=== PATIENT | male | born 1930 | race Caucasian/White ===

== ENCOUNTER 2017-02-07 22:01 | Inpatient (IN) | payer MEDICARE, BC ==
--- NOTE | 2017-02-07 22:12 | EDM.PDOC ---
ED HPI GENERAL MEDICAL PROBLEM - General Chief Complaint: Fever Stated Complaint: "I don't feel well" Time Seen by Provider: 02/07/17 22:03 Source of Information: Reports: Patient, Family History Limitations: Reports: No Limitations - History of Present Illness INITIAL COMMENTS - FREE TEXT/NARRATIVE: Patient is an 86 year old male who presents to the clinic with complaints of shortness of breath and weakness. Family reports since early this week he has been feeling ill and it has progressively gotten worse. At presentation to ER patient's biggest complaint is shortness of breath and weakness. They report he was coughing so bad he could not catch his breath tonight. Family reports he is much weaker than normal. Family reports he has had a fever intermittently over the weekend. He also reports he has had a productive cough. He has been nauseated and did have one emesis on the drive here. Reports urinary frequency and urgency. Also reports he feels lightheaded tonight. Denies dysuria, chest pain, diarrhea. He has been taking OTC cold medicine at home without relief. Family reports his blood sugars have been elevated because of this. Reports he has been eating and drinking ok. Onset: Gradual Onset Date: 02/03/17 Duration: Getting Worse Location: Reports: Chest Associated Symptoms: Reports: Cough, cough w sputum, Fever/Chills, Nausea/ Vomiting, Shortness of Breath, Weakness, Other (lightheadedness). Denies: Confusion, Chest Pain, Diaphoresis, Headaches, Loss of Appetite, Malaise, Rash, Seizure, Syncope Treatments TERMITE EXTERMINATOR: Reports: NSAIDS (took 2 Aleve prior to coming for fever), Other Medication(s) (OTC cold medications) Generalized Pain Score (Numeric/FACES): 1 - Related Data Allergies Allergy/AdvReac Type Severity Reaction Status Date / Time No Known Allergies Allergy Verified 02/07/17 23:30 Home Meds: Home Meds Aspirin [Halfprin] 81 mg PO DAILY 08/22/15 [History] Cinnamon Bark [Cinnamon] 500 mg PO DAILY 08/22/15 [History] Cyanocobalamin (Vitamin B-12) [Vitamin B-12] 500 mg PO DAILY 08/22/15 [History] Flaxseed Oil [Flax Oil] 1,000 mg PO BID 08/22/15 [History] Gabapentin [Neurontin] 300 mg PO BEDTIME 08/22/15 [History] Glucosamine/D3/Boswellia Mona [Osteo Bi-Flex Caplet] 1 tab PO BID 08/22/15 [ History] Insulin Glargine,Hum.Rec.Anlog [Lantus Solostar] 10 units SQ BEDTIME 08/22/15 [ History] Insuln Asp Prot/Insulin Aspart [NovoLOG Mix 70-30] 25 unit SQ ACDINNER 08/22/15 [History] Insuln Asp Prot/Insulin Aspart [NovoLOG Mix 70-30] 35 units SQ WITHBREAKFAST [History] Lisinopril/Hydrochlorothiazide [Lisinopril-Hctz 10-12.5 mg Tab] 1 each PO DAILY 08/22/15 [History] Magnesium 250 mg PO DAILY 08/22/15 [History] Potassium 595 mg PO DAILY 08/22/15 [History] Sennosides/Docusate Sodium [Stool Softener] 1 tab PO BID 08/22/15 [History] Simvastatin [Zocor] 20 mg PO DAILY 08/22/15 [History] Vit D3/Folic Acid/B2/B6/B12 [Folgard Tablet] 2,000 unit PO DAILY 08/22/15 [ History] Vitamin E 400 mg PO DAILY 08/22/15 [History] Zinc 50 mg PO ACBREAKFAST 08/22/15 [History] metFORMIN HCl [Metformin HCl] 500 mg PO BIDMEALS 08/22/15 [History] Past Medical History HEENT History: Reports: Cataract, Impaired Vision Cardiovascular History: Reports: High Cholesterol, Hypertension Musculoskeletal History: Reports: Back Pain, Chronic Endocrine/Metabolic History: Reports: Diabetes, Type II - Past Surgical History GI Surgical History: Reports: Appendectomy, Hernia Repair/Other Social & Family History - Tobacco Use Smoking Status *Q: Never Smoker - Recreational Drug Use Recreational Drug Use: No ED ROS GENERAL - Review of Systems Review Of Systems: See Below Constitutional: Reports: Fever, Chills, Weakness, Fatigue. Denies: Diaphoresis , Decreased Appetite HEENT: Reports: No Symptoms Respiratory: Reports: Shortness of Breath, Pleuritic Chest Pain, Cough, Sputum. Denies: Hemoptysis Cardiovascular: Reports: Dyspnea on Exertion, Lightheadedness. Denies: Chest Pain, Blood Pressure Problem, Edema, Syncope Endocrine: Reports: Fatigue GI/Abdominal: Reports: Nausea, Vomiting. Denies: Abdominal Pain, Black Stool, Bloody Stool, Constipation, Diarrhea, Decreased Appetite, Distension, Hematochezia, Melena : Reports: Frequency, Urgency. Denies: Dysuria Musculoskeletal: Reports: No Symptoms Skin: Reports: No Symptoms Neurological: Reports: Dizziness, Difficulty Walking (due to weakness), Weakness. Denies: Headache, Numbness, Syncope, Tingling Psychiatric: Reports: No Symptoms Hematologic/Lymphatic: Reports: No Symptoms Immunologic: Reports: No Symptoms ED EXAM, GENERAL - Physical Exam Exam: See Below Exam Limited By: No Limitations General Appearance: Alert, WD/WN, Moderate Distress Eye Exam: Bilateral Eye: EOMI, Normal Fundi, Normal Inspection, PERRL Head: Atraumatic, Normocephalic Respiratory/Chest: No Respiratory Distress, No Accessory Muscle Use, Decreased Breath Sounds, Crackles, Wheezing. No: Stridor, Pleural Rub, Accessory Muscle Use, Retractions Cardiovascular: Regular Rate, Rhythm, No Edema, Bradycardia, Systolic Murmur GI/Abdominal: Normal Bowel Sounds, Soft, Non-Tender, No Organomegaly, No Distention, No Abnormal Bruit, No Mass (Male) Exam: Deferred Rectal (Males) Exam: Deferred Back Exam: Normal Inspection, Full Range of Motion, NT Extremities: Normal Inspection, Normal Range of Motion, Non-Tender, Normal Capillary Refill, No Pedal Edema Neurological: Alert, Oriented, CN II-XII Intact, Normal Cognition, Normal Gait, Normal Reflexes, No Motor/Sensory Deficits Psychiatric: Normal Affect, Normal Mood Skin Exam: Warm, Dry, Intact, No Rash, Pallor EKG INTERPRETATION EKG Date: 02/07/17 Time: 22:21 Rhythm: Other (sinus bradycardia) Rate (Beats/Min): 59 [place]: Normal P-Wave: Present QRS: RBBB ST-T: Normal QT: Normal Comparison: NA - No Prior EKG Course - Vital Signs Last Recorded V/S: Last Vital Signs Temp 97.7 F 02/08/17 12:00 Pulse 62 02/08/17 12:00 Resp 20 02/08/17 12:00 BP 121/43 L 02/08/17 12:00 Pulse Ox 95 02/08/17 12:00 - Orders/Labs/Meds Orders: Active Orders 24 hr Category Date Time Status CTA Chest W WO Contrast [Ang Chest] [CT] Stat Exams 02/07/17 22:30 Taken Chest 2V [CR] Stat Exams 02/07/17 22:04 Taken CULTURE BLOOD [BC] Stat Lab 02/07/17 23:05 Received CULTURE BLOOD [BC] Stat Lab 02/07/17 23:05 Received Medication Orders Acetaminophen (Tylenol) 650 mg PO Q4H PRN PRN Reason: Pain (Mild 1-3)/fever Last Admin: 02/08/17 01:30 Dose: 650 mg Albuterol/Ipratropium (Duoneb 3.0-0.5 Mg/3 Ml) 3 ml NEB QIDRT [facility] Last Admin: 02/08/17 11:46 Dose: 3 ml Admin: 02/08/17 08:22 Dose: 3 ml Admin: 02/08/17 02:32 Dose: 3 ml Aspirin (Halfprin) 81 mg PO DAILY [facility] Last Admin: 02/08/17 10:46 Dose: 81 mg Cyanocobalamin (Vitamin B12) 500 mcg PO DAILY [facility] Last Admin: 02/08/17 10:45 Dose: 500 mcg Enoxaparin Sodium (Lovenox) 40 mg SUBCUT Q24H [facility] Gabapentin (Neurontin) 300 mg PO BEDTIME [facility] Hydrochlorothiazide (Hydrochlorothiazide) 12.5 mg PO DAILY [facility] Last Admin: 02/08/17 10:46 Dose: 12.5 mg Sodium Chloride (Sodium Chloride 0.45%) 1,000 mls @ 75 mls/hr IV ASDIRECTED [facility] Last Admin: 02/08/17 01:27 Dose: 75 mls/hr Levofloxacin/Dextrose (Levaquin In D5w 250 Mg/50 Ml) 250 mls @ 166.667 mls/hr IV Q24H [facility] Insulin Aspart (Novolog) 0 unit SUBCUT WITHMEALSANDBED [facility] PRN Reason: Protocol Last Admin: 02/08/17 11:47 Dose: 10 units Admin: 02/08/17 08:39 Dose: 8 units Insulin Aspart (Novolog) 5 unit SUBCUT TIDMEALS [facility] Last Admin: 02/08/17 11:47 Dose: 5 units Insulin Detemir (Levemir) 15 unit SUBCUT BID [facility] Last Admin: 02/08/17 10:53 Dose: 15 units Lisinopril (Prinivil) 10 mg PO DAILY [facility] Last Admin: 02/08/17 10:46 Dose: 10 mg Magnesium Oxide (Magnesium Oxide) 250 mg PO DAILY [facility] Last Admin: 02/08/17 10:45 Dose: 250 mg Metformin HCl (Glucophage) 500 mg PO BIDMEALS [facility] Ondansetron HCl (Zofran Odt) 4 mg PO Q4H PRN PRN Reason: nausea, able to take PO Ondansetron HCl (Zofran) 4 mg IV Q4H PRN PRN Reason: Nausea/Vomiting Potassium (Potassium Gluconate) 2 meq PO DAILY [facility] Last Admin: 02/08/17 10:45 Dose: 2 meq Senna/Docusate Sodium (Senna Plus) 1 tab PO BID [facility] Last Admin: 02/08/17 10:45 Dose: 1 tab Simvastatin (Zocor) 20 mg PO BEDTIME [facility] Sodium Chloride (Saline Flush) 10 ml FLUSH ASDIRECTED PRN PRN Reason: Keep Vein Open Vitamin E (Vitamin E) 400 units PO DAILY [facility] Last Admin: 02/08/17 10:45 Dose: 400 units Zinc Sulfate (Zincate) 220 mg PO ACBREAKFAST [facility] Last Admin: 02/08/17 10:46 Dose: 220 mg Labs: Laboratory Tests 02/07/17 02/07/17 02/07/17 Range/Units 22:04 22:04 22:04 WBC 11.4 H (5.0-10.0) 10^3/uL RBC 4.44 L (4.50-6.00) 10^6/uL Hgb 14.1 (14.0-18.0) g/dL Hct 41.6 (40.0-54.0) % MCV 93.7 (82.0-94.0) fL MCH 31.8 (27.0-32.0) pg MCHC 33.9 (33.0-38.0) g/dL RDW Coeff of Charline 11.9 (11.0-15.0) % Plt Count 182 (150-400) 10^3/uL Neut % (Auto) 85.8 H (35-85) % Lymph % (Auto) 8.4 L (10-55) % [place] % (Auto) 5.3 (0-16) % Eos % (Auto) 0.4 (0-5) % Baso % (Auto) 0.1 (0-3) % Neut # (Auto) 9.78 H (1.80-7.00) 10^3/uL Lymph # (Auto) 0.96 L (1.00-4.80) 10^3/uL [place] # (Auto) 0.60 (0.00-0.80) 10^3/uL Eos # (Auto) 0.05 (0.00-0.45) 10^3/uL Baso # (Auto) 0.01 10^3/uL PT 10.4 (9.7-12.3) SEC INR 0.96 (0.92-1.18) D-Dimer, Quantitative 0.90 H (0.00-0.50) Sodium 137 (136-145) mEq/L Potassium 3.9 (3.5-5.0) mEq/L Chloride 96 L (98-106) mEq/L Carbon Dioxide 32 (21-32) mmol/L BUN 32 H (7-18) mg/dL Creatinine 1.3 (0.7-1.3) mg/dL Est Cr Clr Drug Dosing TNP Estimated GFR (MDRD) 52 L (>=60) mL/min Glucose 265 H D (75-99) mg/dL Lactic Acid (0.4-2.0) mmol/L Calcium 9.0 (8.4-10.1) mg/dL Total Bilirubin 0.6 (0.0-1.0) mg/dL AST 24 (15-37) U/L ALT 28 (12-78) U/L Alkaline Phosphatase 57 (46-116) U/L Creatine Kinase 106 (35-232) U/L Troponin I 0.056 (0.00-0.06) ng/mL C-Reactive Protein < 0.2 L (0.2-0.8) mg/dL Total Protein 7.1 (6.4-8.2) g/dL Albumin 3.6 (3.4-5.0) g/dL Urine Color (YELLOW) Urine Appearance (CLEAR) Urine pH (4.5-8.0) Ur Specific [place] (1.003-1.020) Urine Protein (NEGATIVE) mg/dL Urine Glucose (UA) (NEGATIVE) mg/dL Urine Ketones (NEGATIVE) mg/dL Urine Occult Blood (NEGATIVE) Urine Nitrite (NEGATIVE) Urine Bilirubin (NEGATIVE) Urine Urobilinogen (0.2-1.0) EU/dL Ur Leukocyte Esterase (NEGATIVE) Urine RBC (0-5) /HPF Urine WBC (0-5) /HPF 02/07/17 02/07/17 Range/Units 22:31 22:34 WBC (5.0-10.0) 10^3/uL RBC (4.50-6.00) 10^6/uL Hgb (14.0-18.0) g/dL Hct (40.0-54.0) % MCV (82.0-94.0) fL MCH (27.0-32.0) pg MCHC (33.0-38.0) g/dL RDW Coeff of Charline (11.0-15.0) % Plt Count (150-400) 10^3/uL Neut % (Auto) (35-85) % Lymph % (Auto) (10-55) % [place] % (Auto) (0-16) % Eos % (Auto) (0-5) % Baso % (Auto) (0-3) % Neut # (Auto) (1.80-7.00) 10^3/uL Lymph # (Auto) (1.00-4.80) 10^3/uL [place] # (Auto) (0.00-0.80) 10^3/uL Eos # (Auto) (0.00-0.45) 10^3/uL Baso # (Auto) 10^3/uL PT (9.7-12.3) SEC INR (0.92-1.18) D-Dimer, Quantitative (0.00-0.50) Sodium (136-145) mEq/L Potassium (3.5-5.0) mEq/L Chloride (98-106) mEq/L Carbon Dioxide (21-32) mmol/L BUN (7-18) mg/dL Creatinine (0.7-1.3) mg/dL Est Cr Clr Drug Dosing Estimated GFR (MDRD) (>=60) mL/min Glucose (75-99) mg/dL Lactic Acid 1.8 (0.4-2.0) mmol/L Calcium (8.4-10.1) mg/dL Total Bilirubin (0.0-1.0) mg/dL AST (15-37) U/L ALT (12-78) U/L Alkaline Phosphatase (46-116) U/L Creatine Kinase (35-232) U/L Troponin I (0.00-0.06) ng/mL C-Reactive Protein (0.2-0.8) mg/dL Total Protein (6.4-8.2) g/dL Albumin (3.4-5.0) g/dL Urine Color Yellow (YELLOW) Urine Appearance Clear (CLEAR) Urine pH 6.5 (4.5-8.0) Ur Specific [place] 1.015 (1.003-1.020) Urine Protein Negative (NEGATIVE) mg/dL Urine Glucose (UA) Negative (NEGATIVE) mg/dL Urine Ketones Negative (NEGATIVE) mg/dL Urine Occult Blood Negative (NEGATIVE) Urine Nitrite Negative (NEGATIVE) Urine Bilirubin Negative (NEGATIVE) Urine Urobilinogen 1.0 (0.2-1.0) EU/dL Ur Leukocyte Esterase Negative (NEGATIVE) Urine RBC Not seen (0-5) /HPF Urine WBC Not seen (0-5) /HPF Meds: Medications Generic Name Dose Route Start Last Admin Trade Name Freq PRN Reason Stop Dose Admin Acetaminophen 650 mg 02/08/17 00:55 02/08/17 01:30 Tylenol PO 650 mg Q4H PRN Administration Pain (Mild 1-3)/fever Albuterol/Ipratropium 3 ml 02/08/17 08:00 02/08/17 11:46 Duoneb 3.0-0.5 Mg/3 Ml NEB 3 ml QIDRT [facility] Administration Aspirin 81 mg 02/08/17 09:30 02/08/17 10:46 Halfprin PO 81 mg DAILY [facility] Administration Cyanocobalamin 500 mcg 02/08/17 09:30 02/08/17 10:45 Vitamin B12 PO 500 mcg DAILY [facility] Administration Enoxaparin Sodium 40 mg 02/09/17 08:00 Lovenox SUBCUT Q24H [facility] Gabapentin 300 mg 02/08/17 20:00 Neurontin PO BEDTIME [facility] Hydrochlorothiazide 12.5 mg 02/08/17 09:30 02/08/17 10:46 Hydrochlorothiazide PO 12.5 mg DAILY [facility] Administration Sodium Chloride 1,000 mls @ 75 mls/hr 02/08/17 00:55 02/08/17 01:27 Sodium Chloride 0.45% IV 75 mls/hr ASDIRECTED [facility] Administration Levofloxacin/Dextrose 250 mls @ 166.667 mls/hr 02/09/17 08:00 Levaquin In D5w 250 Mg/50 Ml IV Q24H [facility] Insulin Aspart 0 unit 02/08/17 08:00 02/08/17 11:47 Novolog SUBCUT 10 units WITHMEALSANDBED [facility] Administration Protocol Insulin Aspart 5 unit 02/08/17 12:00 02/08/17 11:47 Novolog SUBCUT 5 units TIDMEALS [facility] Administration Insulin Detemir 15 unit 02/08/17 10:00 02/08/17 10:53 Levemir SUBCUT 15 units BID [facility] Administration Lisinopril 10 mg 02/08/17 09:45 02/08/17 10:46 Prinivil PO 10 mg DAILY [facility] Administration Magnesium Oxide 250 mg 02/08/17 09:30 02/08/17 10:45 Magnesium Oxide PO 250 mg DAILY [facility] Administration Metformin HCl 500 mg 02/09/17 08:00 Glucophage PO BIDMEALS [facility] Ondansetron HCl 4 mg 02/08/17 00:55 Zofran Odt PO Q4H PRN nausea, able to take PO Ondansetron HCl 4 mg 02/08/17 00:55 Zofran IV Q4H PRN Nausea/Vomiting Potassium 2 meq 02/08/17 09:30 02/08/17 10:45 Potassium Gluconate PO 2 meq DAILY [facility] Administration Senna/Docusate Sodium 1 tab 02/08/17 09:30 02/08/17 10:45 Senna Plus PO 1 tab BID [facility] Administration Simvastatin 20 mg 02/08/17 20:00 Zocor PO BEDTIME [facility] Sodium Chloride 10 ml 02/08/17 00:55 Saline Flush FLUSH ASDIRECTED PRN Keep Vein Open Vitamin E 400 units 02/08/17 09:30 02/08/17 10:45 Vitamin E PO 400 units DAILY [facility] Administration Zinc Sulfate 220 mg 02/08/17 09:30 02/08/17 10:46 Zincate PO 220 mg ACBREAKFAST [facility] Administration Discontinued Medications Generic Name Dose Route Start Last Admin Trade Name Freq PRN Reason Stop Dose Admin Albuterol/Ipratropium Confirm 02/08/17 02:43 02/08/17 06:47 Duoneb 3.0-0.5 Mg/3 Ml Administered 02/08/17 02:44 Not Given Dose 3 ml .ROUTE .STK-MED ONE Enoxaparin Sodium 40 mg 02/08/17 01:00 02/08/17 02:24 Lovenox SUBCUT 40 mg Q24H [facility] Administration Levofloxacin/Dextrose 500 mg/ 100 mls @ 100 mls/hr 02/08/17 00:55 02/08/17 02 :22 Premix IV Not Given Q24H [facility] Levofloxacin/Dextrose 150 mls @ 100 mls/hr 02/08/17 02:00 02/08/17 02:22 Levaquin In D5w 750 Mg/150 Ml IV 100 mls/hr Q48H [facility] Administration Iopamidol 100 ml 02/07/17 22:32 02/07/17 22:58 Isovue-370 (76%) IVPUSH 02/07/17 22:33 100 ml ONETIME ONE Administration Methylprednisolone Sodium Succinate 62.5 mg 02/08/17 00:55 02/08/17 01:28 Solu-Medrol IVPUSH 62.5 mg Q12H [facility] Administration Methylprednisolone Sodium Succinate 62.5 mg 02/08/17 20:00 Solu-Medrol IVPUSH Q12H [facility] Methylprednisolone Sodium Succinate 62.5 mg 02/08/17 10:00 Solu-Medrol IVPUSH 02/08/17 10:01 ONETIME ONE - Radiology Interpretation Free Text/Narrative:: CTA Chest shows LLL pneumonia. No PE. CT Results Date: 02/08/17 CT Results Time: 23:50 - Re-Assessments/Exams Free Text/Narrative Re-Assessment/Exam: 02/07/17 22:10 CXR reviewed. Appears to have LLL infiltrate not seen on previous Xray. WBC elevated. D-Dimer also elevated. Will get CTA chest to rule out PE. Labs, images , and EKG discussed with patient and family. Discussed that we will admit the patient to the hospital for pneumonia. Departure - Departure Time of Disposition: 23:40 Disposition: Admitted As Inpatient 65 Condition: Fair Clinical Impression: Pneumonia Qualifiers: Pneumonia type: due to unspecified organism Laterality: left Lung location: lower lobe of lung Qualified Code(s): J18.1 - Lobar pneumonia, unspecified organism - Discharge Information - Problem List & Annotations (1) Pneumonia SNOMED Code(s): 159961902 Code(s): J18.9 - PNEUMONIA, UNSPECIFIED ORGANISM Status: Acute Priority: High Current Visit: Yes Onset Date: 02/07/17 Qualifiers: Pneumonia type: due to unspecified organism Laterality: left Lung location: lower lobe of lung Qualified Code(s): J18.1 - Lobar pneumonia, unspecified organism (2) Diabetes mellitus type 2, controlled SNOMED Code(s): 17855166 Code(s): E11.9 - TYPE 2 DIABETES MELLITUS WITHOUT COMPLICATIONS Status: Chronic Priority: Medium Current Visit: No Qualifiers: Diabetes mellitus complication detail: with unspecified neuropathy Diabetes mellitus manager long term care insulin use: with fpc use (3) Hypertension SNOMED Code(s): 66728691 Code(s): I10 - ESSENTIAL (PRIMARY) HYPERTENSION Status: Chronic Priority : Low Current Visit: No Qualifiers: Hypertension type: essential hypertension Qualified Code(s): I10 - Essential (primary) hypertension - Problem List Review Problem List Initiated/Reviewed/Updated: Yes - My Orders Last 24 Hours: My Active Orders 02/07/17 22:04 Chest 2V [CR] Stat 02/07/17 22:30 CTA Chest W WO Contrast [Ang Chest] [CT] Stat 02/07/17 23:05 CULTURE BLOOD [BC] Stat CULTURE BLOOD [BC] Stat - Assessment/Plan Admission H&P: Please use this note as an admission H&P Last 24 Hours: My Active Orders 02/07/17 22:04 Chest 2V [CR] Stat 02/07/17 22:30 CTA Chest W WO Contrast [Ang Chest] [CT] Stat 02/07/17 23:05 CULTURE BLOOD [BC] Stat CULTURE BLOOD [BC] Stat Plan: Left Lower Lobe Pneumonia - IV Levaquin 500 mg Q 24 --> Switched to 750 mg Q 48 per telepharmacy based on creatinine clearance - Nebs - Blood cultures pending - Sputum culture pending - Steroids Hypertension - Continue home meds Type II Diabetes - Continue current home meds - moderate SSI
[2017-02-07 22:25] LABS: CHLORIDE,CL 96 mEq/L (98-106); SODIUM,NA 137 mEq/L (136-145)
[2017-02-07] MEDS ORDERED: Iopamidol 755 Mg/ML 100 ML Bottle IVPUSH ONE (22:32)
[2017-02-08] MEDS ORDERED: Ondansetron 4 MG Tab.DIS PO PRN (00:55)
[2017-02-08] MEDS ORDERED: Acetaminophen 325 MG Tab PO PRN (00:55)
[2017-02-08] MEDS ORDERED: Levofloxacin/Dextrose 5%-Water 500 MG in Premix Bag 1 BAG IV SCH ×3 (00:55→01:45)
[2017-02-08] MEDS ORDERED: Ondansetron 4 MG/2 ML SDV IV PRN (00:55)
[2017-02-08] MEDS ORDERED: Sodium Chloride 0.9% 10 ML Syringe FLUSH PRN (00:55)
[2017-02-08] MEDS ORDERED: methylPREDNISolone Sodium Succinate 125 MG/2 ML SDV IVPUSH SCH ×2 (00:55→20:00)
[2017-02-08] MEDS ORDERED: Enoxaparin 40 MG/0.4 ML Syringe SUBCUT SCH (01:00)
[2017-02-08] MEDS: Sodium Chloride 0.45% 1,000 ML IV SCH ×2 (01:27→16:01)
[2017-02-08] MEDS ORDERED: Levofloxacin/Dextrose 5%-Water 150 ML IV SCH (02:00)
[2017-02-08] MEDS: Albuterol/Ipratropium 3.0-0.5 MG/3 ML Neb Soln NEB SCH ×5 (02:32→19:48)
[2017-02-08] MEDS ORDERED: Albuterol/Ipratropium 3.0-0.5 MG/3 ML Neb Soln ONE (02:43)
[2017-02-08] MEDS: Insulin Aspart 100 Units/ML 3 ML Pen SUBCUT SCH ×6 (08:39→21:17)
[2017-02-08] MEDS ORDERED: Insulin Detemir 100 Units/ML 3 ML Pen SUBCUT SCH ×2 (10:00→17:14)
[2017-02-08] MEDS ORDERED: methylPREDNISolone Sodium Succinate 125 MG/2 ML SDV IVPUSH ONE (10:00)
[2017-02-08] MEDS: Vitamin E (dl-alpha-tocopherol acetate) 400 Unit Cap PO SCH (10:45)
[2017-02-08] MEDS: FOLIC ACID PO SCH (10:45)
[2017-02-08] MEDS: [UNRECOGNIZED DRUG - OTHER] PO SCH (10:45)
[2017-02-08] MEDS: Potassium Gluconate (99 MG) 2 MEQ Tab PO SCH (10:45)
[2017-02-08] MEDS: Cyanocobalamin (Vitamin B12) 1,000 MCG Tab PO SCH (10:45)
[2017-02-08] MEDS: Aspirin 81 MG Tab.EC PO SCH (10:46)
[2017-02-08] MEDS: Lisinopril 10 MG Tab PO SCH (10:46)
[2017-02-08] MEDS: Zinc Sulfate 220 MG Cap PO SCH (10:46)
[2017-02-08] MEDS: Hydrochlorothiazide 12.5 MG Cap PO SCH (10:46)
--- NOTE | 2017-02-08 16:50 | PCM.PN ---
- General Info Date of Service: 02/08/17 Subjective Update: Patient reports he is feeling better this morning. He reports he feels like he has a little more energy than yesterday, although he hasn't been out of bed at the time of morning rounds. Continues to feel weak with movement in bed. He has been afebrile throughout the night. Continues to have productive cough. Shortness of breath somewhat improved. Functional Status: Reports: Pain Controlled, Tolerating Diet, Ambulating, Urinating. Denies: New Symptoms - Review of Systems General: Reports: Weakness, Fatigue, Malaise, Appetite (improved). Denies: Fever, Chills HEENT: Reports: No Symptoms Pulmonary: Reports: Shortness of Breath, Pleuritic Chest Pain, Cough, Sputum Cardiovascular: Reports: Dyspnea on Exertion. Denies: Chest Pain, Edema, Lightheadedness Gastrointestinal: Reports: No Symptoms Genitourinary: Reports: No Symptoms Musculoskeletal: Reports: No Symptoms Skin: Reports: No Symptoms Neurological: Reports: Weakness. Denies: Confusion, Dizziness, Headache, Numbness, Syncope, Tingling - Patient Data Vitals - Most Recent: Last Vital Signs Temp 97.7 F 02/08/17 12:00 Pulse 62 02/08/17 12:00 Resp 20 02/08/17 12:00 BP 121/43 L 02/08/17 12:00 Pulse Ox 95 02/08/17 12:00 Weight - Most Recent: 211 lb I&O - Last 24 Hours: Intake & Output 02/08/17 02/08/17 02/08/17 06:59 14:59 22:59 Intake Total 1000 Balance 1000 Lab Results Last 24 Hours: Laboratory Results - last 24 hr 02/08/17 02/08/17 02/08/17 Range/Units 05:11 07:00 08:02 WBC 16.3 H (5.0-10.0) 10^3/uL RBC 4.32 L (4.50-6.00) 10^6/uL Hgb 13.8 L (14.0-18.0) g/dL Hct 40.6 (40.0-54.0) % MCV 94.0 (82.0-94.0) fL MCH 31.9 (27.0-32.0) pg MCHC 34.0 (33.0-38.0) g/dL RDW Coeff of Charline 11.9 (11.0-15.0) % Plt Count 166 (150-400) 10^3/uL Neut % (Auto) 92.5 H (35-85) % Lymph % (Auto) 6.0 L (10-55) % [place] % (Auto) 1.5 (0-16) % Eos % (Auto) 0 (0-5) % Baso % (Auto) 0 (0-3) % Neut # (Auto) 15.07 H (1.80-7.00) 10^3/uL Lymph # (Auto) 0.97 L (1.00-4.80) 10^3/uL [place] # (Auto) 0.25 (0.00-0.80) 10^3/uL Eos # (Auto) 0.00 (0.00-0.45) 10^3/uL Baso # (Auto) 0.00 10^3/uL Sodium 136 (136-145) mEq/L Potassium 4.1 (3.5-5.0) mEq/L Chloride 97 L (98-106) mEq/L Carbon Dioxide 30 (21-32) mmol/L BUN 36 H (7-18) mg/dL Creatinine 1.4 H (0.7-1.3) mg/dL Est Cr Clr Drug Dosing 34.75 mL/min Estimated GFR (MDRD) 48 L (>=60) mL/min Glucose 328 H* (75-99) mg/dL POC Glucose (75-105) mg/dl Calcium 8.7 (8.4-10.1) mg/dL Magnesium 1.8 (1.8-2.4) mg/dL C-Reactive Protein 2.7 H (0.2-0.8) mg/dL NT-Pro-B Natriuret Pep 477 (0-1000) pg/mL 02/08/ Range/Units 11:18 WBC (5.0-10.0) 10^3/uL RBC (4.50-6.00) 10^6/uL Hgb (14.0-18.0) g/dL Hct (40.0-54.0) % MCV (82.0-94.0) fL MCH (27.0-32.0) pg MCHC (33.0-38.0) g/dL RDW Coeff of Charline (11.0-15.0) % Plt Count (150-400) 10^3/uL Neut % (Auto) (35-85) % Lymph % (Auto) (10-55) % [place] % (Auto) (0-16) % Eos % (Auto) (0-5) % Baso % (Auto) (0-3) % Neut # (Auto) (1.80-7.00) 10^3/uL Lymph # (Auto) (1.00-4.80) 10^3/uL [place] # (Auto) (0.00-0.80) 10^3/uL Eos # (Auto) (0.00-0.45) 10^3/uL Baso # (Auto) 10^3/uL Sodium (136-145) mEq/L Potassium (3.5-5.0) mEq/L Chloride (98-106) mEq/L Carbon Dioxide (21-32) mmol/L BUN (7-18) mg/dL Creatinine (0.7-1.3) mg/dL Est Cr Clr Drug Dosing mL/min Estimated GFR (MDRD) (>=60) mL/min Glucose (75-99) mg/dL POC Glucose 417 H* (75-105) mg/dl Calcium (8.4-10.1) mg/dL Magnesium (1.8-2.4) mg/dL C-Reactive Protein (0.2-0.8) mg/dL NT-Pro-B Natriuret Pep (0-1000) pg/mL Med Orders - Current: Current Medications Acetaminophen (Tylenol) 650 mg PO Q4H PRN PRN Reason: Pain (Mild 1-3)/fever Last Admin: 02/08/17 01:30 Dose: 650 mg Albuterol/Ipratropium (Duoneb 3.0-0.5 Mg/3 Ml) 3 ml NEB QIDRT [facility] Last Admin: 02/08/17 16:02 Dose: 3 ml Aspirin (Halfprin) 81 mg PO DAILY [facility] Last Admin: 02/08/17 10:46 Dose: 81 mg Cyanocobalamin (Vitamin B12) 500 mcg PO DAILY [facility] Last Admin: 02/08/17 10:45 Dose: 500 mcg Enoxaparin Sodium (Lovenox) 40 mg SUBCUT Q24H [facility] Gabapentin (Neurontin) 300 mg PO BEDTIME [facility] Hydrochlorothiazide (Hydrochlorothiazide) 12.5 mg PO DAILY [facility] Last Admin: 02/08/17 10:46 Dose: 12.5 mg Sodium Chloride (Sodium Chloride 0.45%) 1,000 mls @ 75 mls/hr IV ASDIRECTED [facility] Last Admin: 02/08/17 16:01 Dose: 75 mls/hr Levofloxacin/Dextrose (Levaquin In D5w 250 Mg/50 Ml) 250 mls @ 166.667 mls/hr IV Q24H [facility] Insulin Aspart (Novolog) 0 unit SUBCUT WITHMEALSANDBED [facility] PRN Reason: Protocol Last Admin: 02/08/17 11:47 Dose: 10 units Insulin Aspart (Novolog) 5 unit SUBCUT TIDMEALS [facility] Last Admin: 02/08/17 11:47 Dose: 5 units Insulin Detemir (Levemir) 15 unit SUBCUT BID [facility] Last Admin: 02/08/17 10:53 Dose: 15 units Lisinopril (Prinivil) 10 mg PO DAILY [facility] Last Admin: 02/08/17 10:46 Dose: 10 mg Magnesium Oxide (Magnesium Oxide) 250 mg PO DAILY [facility] Last Admin: 02/08/17 10:45 Dose: 250 mg Metformin HCl (Glucophage) 500 mg PO BIDMEALS [facility] Ondansetron HCl (Zofran Odt) 4 mg PO Q4H PRN PRN Reason: nausea, able to take PO Ondansetron HCl (Zofran) 4 mg IV Q4H PRN PRN Reason: Nausea/Vomiting Potassium (Potassium Gluconate) 2 meq PO DAILY [facility] Last Admin: 02/08/17 10:45 Dose: 2 meq Senna/Docusate Sodium (Senna Plus) 1 tab PO BID [facility] Last Admin: 02/08/17 10:45 Dose: 1 tab Simvastatin (Zocor) 20 mg PO BEDTIME [facility] Sodium Chloride (Saline Flush) 10 ml FLUSH ASDIRECTED PRN PRN Reason: Keep Vein Open Vitamin E (Vitamin E) 400 units PO DAILY [facility] Last Admin: 02/08/17 10:45 Dose: 400 units Zinc Sulfate (Zincate) 220 mg PO ACBREAKFAST [facility] Last Admin: 02/08/17 10:46 Dose: 220 mg Discontinued Medications Albuterol/Ipratropium (Duoneb 3.0-0.5 Mg/3 Ml) Confirm Administered Dose 3 ml .ROUTE .STK-MED ONE Stop: 02/08/17 02:44 Last Admin: 02/08/17 06:47 Dose: Not Given Enoxaparin Sodium (Lovenox) 40 mg SUBCUT Q24H [facility] Last Admin: 02/08/17 02:24 Dose: 40 mg Levofloxacin/Dextrose 500 mg/ (Premix) 100 mls @ 100 mls/hr IV Q24H [facility] Last Admin: 02/08/17 02:22 Dose: Not Given Levofloxacin/Dextrose (Levaquin In D5w 750 Mg/150 Ml) 150 mls @ 100 mls/hr IV Q48H [facility] Last Admin: 02/08/17 02:22 Dose: 100 mls/hr Iopamidol (Isovue-370 (76%)) 100 ml IVPUSH ONETIME ONE Stop: 02/07/17 22:33 Last Admin: 02/07/17 22:58 Dose: 100 ml Methylprednisolone Sodium Succinate (Solu-Medrol) 62.5 mg IVPUSH Q12H [facility] Last Admin: 02/08/17 01:28 Dose: 62.5 mg Methylprednisolone Sodium Succinate (Solu-Medrol) 62.5 mg IVPUSH Q12H [facility] Methylprednisolone Sodium Succinate (Solu-Medrol) 62.5 mg IVPUSH ONETIME ONE Stop: 02/08/17 10:01 - Exam Quality Assessment: DVT Prophylaxis. No: Supplemental Oxygen General: Alert, Oriented, No Acute Distress Neck: Supple Lungs: Normal Respiratory Effort, Decreased Breath Sounds, Crackles Cardiovascular: Regular Rhythm, Bradycardia GI/Abdominal Exam: Normal Bowel Sounds, Soft, Non-Tender, No Organomegaly, No Distention, No Abnormal Bruit, No Mass, Pelvis Stable Neurological: No New Focal Deficit Psy/Mental Status: Alert, Normal Affect, Normal Mood - Problem List & Annotations (1) Pneumonia SNOMED Code(s): 200360294 Code(s): J18.9 - PNEUMONIA, UNSPECIFIED ORGANISM Status: Acute Priority: High Current Visit: Yes Onset Date: 02/07/17 Qualifiers: Pneumonia type: due to unspecified organism Laterality: left Lung location: lower lobe of lung Qualified Code(s): J18.1 - Lobar pneumonia, unspecified organism (2) Diabetes mellitus type 2, controlled SNOMED Code(s): 32911200 Code(s): E11.9 - TYPE 2 DIABETES MELLITUS WITHOUT COMPLICATIONS Status: Chronic Priority: Medium Current Visit: No Qualifiers: Diabetes mellitus complication detail: with unspecified neuropathy Diabetes mellitus alf insulin use: with alf use (3) Hypertension SNOMED Code(s): 93442104 Code(s): I10 - ESSENTIAL (PRIMARY) HYPERTENSION Status: Chronic Priority : Low Current Visit: No Qualifiers: Hypertension type: essential hypertension Qualified Code(s): I10 - Essential (primary) hypertension (4) Acute kidney insufficiency SNOMED Code(s): 291669169 Code(s): N28.9 - DISORDER OF KIDNEY AND URETER, UNSPECIFIED Status: Acute Current Visit: Yes - Problem List Review Problem List Initiated/Reviewed/Updated: Yes - My Orders Last 24 Hours: My Active Orders 02/08/17 00:55 Sodium Chloride 0.45% 1,000 ml IV ASDIRECTED 02/08/17 09:30 Aspirin [Halfprin] 81 mg PO DAILY Cyanocobalamin (Vitamin B12) [Vitamin B12] 500 mcg PO DAILY Docusate Sodium/Sennosides [Senna Plus] 1 tab PO BID Folic Acid/Vit B Complix And C [Tabatha-Corry] 0.8 mg PO DAILY Hydrochlorothiazide 12.5 mg PO DAILY Magnesium Oxide 250 mg PO DAILY Potassium Gluconate 2 meq PO DAILY Vitamin E (dl, acetate) [Vitamin E] 400 units PO DAILY Zinc Sulfate [Zincate] 220 mg PO ACBREAKFAST 02/08/17 09:45 Lisinopril [Prinivil] 10 mg PO DAILY 02/08/17 10:00 Insulin Detemir [Levemir] 15 unit SUBCUT BID 02/08/17 12:00 Insulin Aspart [NovoLOG] 5 unit SUBCUT TIDMEALS 02/08/17 20:00 Gabapentin [Neurontin] 300 mg PO BEDTIME Simvastatin [Zocor] 20 mg PO BEDTIME 02/08/17 Breakfast Consistent Carbohydrate Diet (Diabetic) [Consistent Carbohydrate Diet] [DIET] 02/09/17 08:00 Levofloxacin/Dextrose 5%-Water [Levaquin in D5W 250 MG/50 ML] 250 ml IV Q24H metFORMIN [Glucophage] 500 mg PO BIDMEALS - Plan Plan:: Left Lower Lobe Pneumonia - Spoke with pharmacy regarding dosing of Levaquin due to kidney dysfunction: switched to 250 mg IV Q 24 hrs - Continue nebs - Stop steroids due to elevated blood sugars - Awaiting blood cultures - Awaiting sputum culture - CBC & CRP in am. WBC elevated today from admission, potentially steroid induced. Will follow Type II Diabetes Mellitus - Metformin on hold for 48 hours following CTA chest. Will restart tomorrow - Blood sugars remain very elevated - increased Novolog dose at lunch - additional 5 units given on top of 10 units SSI and 5 units already dosed for total of 20 units of novolog with supper - Steroids stopped this morning Hypertension - Continue current home meds Acute Kidney Insufficiency - continue IVF - Hold metformin - BMP in am
[2017-02-08] MEDS ORDERED: Insuln Aspart Prot/Insulin Aspart 100 Units/ML 3 ML FlexPen SUBCUT SCH (17:00)
[2017-02-08] MEDS ORDERED: Insulin Aspart 100 Units/ML 3 ML Pen SUBCUT ONE ×2 (17:02→20:13)
[2017-02-08] MEDS: Simvastatin 20 MG Tab PO SCH (19:48)
[2017-02-08] MEDS: Gabapentin 300 MG Cap PO SCH (19:48)
[2017-02-08] MEDS: Insulin Detemir 100 Units/ML 3 ML Pen SUBCUT SCH (21:15)
[2017-02-08] MEDS: Temazepam 15 MG Cap PO PRN (22:19)
[2017-02-09] MEDS: Zinc Sulfate 220 MG Cap PO SCH (06:10)
[2017-02-09] MEDS: Albuterol/Ipratropium 3.0-0.5 MG/3 ML Neb Soln NEB SCH ×4 (07:51→20:44)
[2017-02-09] MEDS: metFORMIN 500 MG Tab PO SCH ×2 (07:52→17:23)
[2017-02-09] MEDS: Hydrochlorothiazide 12.5 MG Cap PO SCH (07:52)
[2017-02-09] MEDS: Aspirin 81 MG Tab.EC PO SCH (07:52)
[2017-02-09] MEDS: Enoxaparin 40 MG/0.4 ML Syringe SUBCUT SCH (07:53)
[2017-02-09] MEDS: Lisinopril 10 MG Tab PO SCH (07:54)
[2017-02-09] MEDS: Potassium Gluconate (99 MG) 2 MEQ Tab PO SCH (07:54)
[2017-02-09] MEDS: FOLIC ACID PO SCH (07:54)
[2017-02-09] MEDS: [UNRECOGNIZED DRUG - OTHER] PO SCH (07:54)
[2017-02-09] MEDS: Vitamin E (dl-alpha-tocopherol acetate) 400 Unit Cap PO SCH (07:55)
[2017-02-09] MEDS: Cyanocobalamin (Vitamin B12) 1,000 MCG Tab PO SCH (07:55)
[2017-02-09] MEDS: Insulin Detemir 100 Units/ML 3 ML Pen SUBCUT SCH ×2 (07:57→20:45)
[2017-02-09] MEDS: Insulin Aspart 100 Units/ML 3 ML Pen SUBCUT SCH ×7 (07:58→20:45)
[2017-02-09] MEDS ORDERED: Levofloxacin/Dextrose 5%-Water 250 ML IV SCH (08:00)
[2017-02-09] MEDS ORDERED: Insuln Aspart Prot/Insulin Aspart 100 Units/ML 3 ML FlexPen SUBCUT SCH (08:00)
[2017-02-09] MEDS: methylPREDNISolone Sodium Succinate 125 MG/2 ML SDV IVPUSH SCH (08:16)
--- NOTE | 2017-02-09 09:50 | PN ---
DATE: 02/09/2017 S: Marshall Lazar is in with a left lower lobe pneumonia. O: NECK: Supple. CHEST: Crepitus wheezing, left lower lobe. CARDIAC: Sounds are good. EXTREMITIES: No edema. ASSESSMENT: PNEUMONITIS. P: I am going to have him give little IV steroids today and then get on his blood sugars a little bit harder. STEW/TIFFANY /[id number]
[2017-02-09] MEDS: Gabapentin 300 MG Cap PO SCH (19:26)
[2017-02-09] MEDS: Simvastatin 20 MG Tab PO SCH (19:26)
[2017-02-09] MEDS: Sodium Chloride 0.45% 1,000 ML IV SCH (19:26)
[2017-02-09] MEDS: Temazepam 15 MG Cap PO PRN (22:49)
[2017-02-10] MEDS: Zinc Sulfate 220 MG Cap PO SCH (07:00)
[2017-02-10 07:16] LABS: CHLORIDE,CL 105 mEq/L (98-106); SODIUM,NA 140 mEq/L (136-145)
[2017-02-10] MEDS: Enoxaparin 40 MG/0.4 ML Syringe SUBCUT SCH (07:48)
[2017-02-10] MEDS: Albuterol/Ipratropium 3.0-0.5 MG/3 ML Neb Soln NEB SCH ×4 (07:48→19:26)
[2017-02-10] MEDS: Cyanocobalamin (Vitamin B12) 1,000 MCG Tab PO SCH (07:50)
[2017-02-10] MEDS: Aspirin 81 MG Tab.EC PO SCH (07:51)
[2017-02-10] MEDS: Potassium Gluconate (99 MG) 2 MEQ Tab PO SCH (07:51)
[2017-02-10] MEDS: Hydrochlorothiazide 12.5 MG Cap PO SCH (07:51)
[2017-02-10] MEDS: Vitamin E (dl-alpha-tocopherol acetate) 400 Unit Cap PO SCH (07:51)
[2017-02-10] MEDS: [UNRECOGNIZED DRUG - OTHER] PO SCH (07:52)
[2017-02-10] MEDS: metFORMIN 500 MG Tab PO SCH ×2 (07:52→17:53)
[2017-02-10] MEDS: FOLIC ACID PO SCH (07:52)
[2017-02-10] MEDS: Lisinopril 10 MG Tab PO SCH (07:52)
[2017-02-10] MEDS: Insulin Detemir 100 Units/ML 3 ML Pen SUBCUT SCH (07:53)
[2017-02-10] MEDS: Levofloxacin/Dextrose 5%-Water 250 MG in Premix Bag 1 BAG IV SCH (07:56)
[2017-02-10] MEDS: Insulin Aspart 100 Units/ML 3 ML Pen SUBCUT SCH ×7 (07:58→20:00)
[2017-02-10] MEDS: methylPREDNISolone Sodium Succinate 125 MG/2 ML SDV IVPUSH SCH (09:15)
[2017-02-10] MEDS: Sodium Chloride 0.45% 1,000 ML IV SCH ×2 (09:45→23:19)
--- NOTE | 2017-02-10 09:52 | PN ---
DATE: 02/10/2017 S: This is an 86-year-old gentleman with a left lower lobe pneumonitis. He feels better. He is afebrile. Vitals are good. O: NECK: Supple. CHEST: Crepitus and wheezing in left lower lobe. CARDIAC: Sounds are good. EXTREMITIES: No edema. ASSESSMENT: LEFT LOWER LOBE PNEUMONITIS. P: Continue present therapy. Blood sugars are under better control this morning. He is better on the IV steroids. YUMIKO /[id number]
[2017-02-10] MEDS: Gabapentin 300 MG Cap PO SCH (19:26)
[2017-02-10] MEDS: Simvastatin 20 MG Tab PO SCH (19:27)
[2017-02-10] MEDS ORDERED: Insulin Detemir 100 Units/ML 3 ML Pen SUBCUT SCH (20:00)
[2017-02-10] MEDS: Temazepam 15 MG Cap PO PRN (23:22)
[2017-02-11] MEDS: Zinc Sulfate 220 MG Cap PO SCH (06:27)
[2017-02-11] MEDS: Insulin Aspart 100 Units/ML 3 ML Pen SUBCUT SCH ×5 (07:57→17:33)
[2017-02-11] MEDS: methylPREDNISolone Sodium Succinate 125 MG/2 ML SDV IVPUSH SCH (07:59)
[2017-02-11] MEDS: Albuterol/Ipratropium 3.0-0.5 MG/3 ML Neb Soln NEB SCH ×3 (07:59→16:51)
[2017-02-11] MEDS: Enoxaparin 40 MG/0.4 ML Syringe SUBCUT SCH (08:00)
[2017-02-11] MEDS: Lisinopril 10 MG Tab PO SCH (08:00)
[2017-02-11] MEDS ORDERED: Insulin Detemir 100 Units/ML 3 ML Pen SUBCUT SCH ×2 (08:00)
[2017-02-11] MEDS: Aspirin 81 MG Tab.EC PO SCH (08:00)
[2017-02-11] MEDS ORDERED: Insulin Aspart 100 Units/ML 3 ML Pen SUBCUT SCH (08:00)
[2017-02-11] MEDS: Cyanocobalamin (Vitamin B12) 1,000 MCG Tab PO SCH (08:00)
[2017-02-11] MEDS: Potassium Gluconate (99 MG) 2 MEQ Tab PO SCH (08:00)
[2017-02-11] MEDS: Vitamin E (dl-alpha-tocopherol acetate) 400 Unit Cap PO SCH (08:02)
[2017-02-11] MEDS: Levofloxacin/Dextrose 5%-Water 250 MG in Premix Bag 1 BAG IV SCH (08:02)
[2017-02-11] MEDS: metFORMIN 500 MG Tab PO SCH ×2 (08:02→16:51)
[2017-02-11] MEDS: [UNRECOGNIZED DRUG - OTHER] PO SCH (08:02)
[2017-02-11] MEDS: FOLIC ACID PO SCH (08:02)
[2017-02-11] MEDS: Hydrochlorothiazide 12.5 MG Cap PO SCH (08:02)
[2017-02-11 08:17] LABS: CHLORIDE,CL 105 mEq/L (98-106); SODIUM,NA 139 mEq/L (136-145)
[2017-02-11] MEDS: Sodium Chloride 0.45% 1,000 ML IV SCH (15:18)
[2017-02-11 16:34] VITALS: BP 139/84
--- NOTE | 2017-02-11 18:06 | PCM.DCSUM1 ---
Discharge Summary - Hospital Course HPI Initial Comments: Patient is an 86 year old male who was admitted to the hospital from the ER on 02/07/17 for LLL pneumonia. He will be transferred from acute care to swing bed today for additional antibiotic, steroid, and nebulizer treatments. Initially on admission, patient was very weak, short of breath, and coughing. He had also had an intermittent fever over the previous few days. He was started on IV Levaquin, IV solumedrol, and scheduled duonebs. Throughout stay, his WBC improved from 11.4 on admission to 9.3 at time of transfer, his CRP improved from 2.7 at time of admission to 1.0 at time of transfer. His BUN was also elevated. Patient was given IVF and his BUN trended down throughout stay. His energy level increased and his shortness of breath improved. At the time of transfer, patient was ambulating frequently in the halls independently. He was afebrile. He was continuing to cough up some sputum, but this had improved. We did have some difficulty controlling his elevated blood sugars. He was off his metformin for a few days as he had contrast dye with a CTA chest and was also getting steroids. Blood sugars at the time of discharge were better controlled. Will continue all current cares upon [facility]. PLEASE USE THIS NOTE ADMISSION H & P. SEE NURSES DOCUMENTATION FOR PAST MEDICAL, SURGICAL, AND FAMILY AND SOCIAL HISTORY. - Discharge Data Discharge Date: 02/11/17 Discharge Disposition: DC/Tfer W/I Hosp To [place] [id number] Condition: Fair - Discharge Diagnosis/Problem(s) (1) Pneumonia SNOMED Code(s): 856010583 ICD Code: J18.9 - PNEUMONIA, UNSPECIFIED ORGANISM Status: Acute Priority : High Onset Date: 02/07/17 Qualifiers: Pneumonia type: due to unspecified organism Laterality: left Lung location: lower lobe of lung Qualified Code(s): J18.1 - Lobar pneumonia, unspecified organism (2) Diabetes mellitus type 2, controlled SNOMED Code(s): 01345677 ICD Code: E11.9 - TYPE 2 DIABETES MELLITUS WITHOUT COMPLICATIONS Status: Chronic Priority: Medium Qualifiers: Diabetes mellitus [facility] insulin use: with [facility] use (3) Hypertension SNOMED Code(s): 47506428 ICD Code: I10 - ESSENTIAL (PRIMARY) HYPERTENSION Status: Chronic Priority : Medium (4) Acute kidney insufficiency SNOMED Code(s): 047904337 ICD Code: N28.9 - DISORDER OF KIDNEY AND URETER, UNSPECIFIED Status: Acute Priority: High - Patient Instructions Diet: Regular Diet as Tolerated Activity: As Tolerated - Discharge Plan Home Medications: Home Meds Aspirin [Halfprin] 81 mg PO DAILY 08/22/15 [History] Cinnamon Bark [Cinnamon] 500 mg PO DAILY 08/22/15 [History] Cyanocobalamin (Vitamin B-12) [Vitamin B-12] 500 mg PO DAILY 08/22/15 [History] Flaxseed Oil [Flax Oil] 1,000 mg PO BID 08/22/15 [History] Gabapentin [Neurontin] 300 mg PO BEDTIME 08/22/15 [History] Glucosamine/D3/Boswellia Mona [Osteo Bi-Flex Caplet] 1 tab PO BID 08/22/15 [ History] Insulin Glargine,Hum.Rec.Anlog [Lantus Solostar] 10 units SQ BEDTIME 08/22/15 [ History] Insuln Asp Prot/Insulin Aspart [NovoLOG Mix 70-30] 25 unit SQ ACDINNER 08/22/15 [History] Insuln Asp Prot/Insulin Aspart [NovoLOG Mix 70-30] 35 units SQ WITHBREAKFAST [History] Lisinopril/Hydrochlorothiazide [Lisinopril-Hctz 10-12.5 mg Tab] 1 each PO DAILY 08/22/15 [History] Magnesium 250 mg PO DAILY 08/22/15 [History] Potassium 595 mg PO DAILY 08/22/15 [History] Sennosides/Docusate Sodium [Stool Softener] 1 tab PO BID 08/22/15 [History] Simvastatin [Zocor] 20 mg PO DAILY 08/22/15 [History] Vit D3/Folic Acid/B2/B6/B12 [Folgard Tablet] 2,000 unit PO DAILY 08/22/15 [ History] Vitamin E 400 mg PO DAILY 08/22/15 [History] Zinc 50 mg PO ACBREAKFAST 08/22/15 [History] metFORMIN HCl [Metformin HCl] 500 mg PO BIDMEALS 08/22/15 [History] Levofloxacin [Levaquin] 250 mg PO Q24H 3 Days tablet 02/15/17 [Rx] Forms: ED Department Discharge - General Info Date of Service: 02/11/17 Admission Dx/Problem (Free Text: Left Lower Lobe Pneumonia Hypertension Type II Diabetes Mellitus Acute Kidney Insufficiency Subjective Update: Patient reports he has much more energy compared to time of admission. Is coughing less, but continues to have productive cough. He reports his shortness of breath has improved. He is up ambulating in halls frequently. Functional Status: Reports: Pain Controlled, Tolerating Diet, Ambulating, Urinating. Denies: New Symptoms - Review of Systems General: Reports: Fatigue. Denies: Fever, Weakness, Chills HEENT: Reports: No Symptoms Pulmonary: Reports: Shortness of Breath (improved), Cough, Sputum. Denies: Hemoptysis Cardiovascular: Reports: Dyspnea on Exertion. Denies: Chest Pain, Palpitations , Lightheadedness Gastrointestinal: Reports: No Symptoms. Denies: Abdominal Pain, Constipation, Decreased Appetite, Diarrhea, Hematochezia, Melena, Nausea, Vomiting Genitourinary: Reports: Frequency. Denies: Dysuria Musculoskeletal: Reports: No Symptoms Skin: Reports: No Symptoms Neurological: Reports: No Symptoms. Denies: Confusion, Headache Psychiatric: Reports: No Symptoms - Patient Data Vitals - Most Recent: Last Vital Signs Temp 98 F 02/11/17 16:00 Pulse 60 02/11/17 16:00 Resp 18 02/11/17 16:00 BP 139/84 02/11/17 16:00 Pulse Ox 97 02/11/17 16:00 Weight - Most Recent: 211 lb I&O - Last 24 hours: Intake & Output 02/11/17 02/11/17 02/11/17 06:59 14:59 22:59 Intake Total 1000 1000 Balance 1000 1000 Lab Results - Last 24 hrs: Laboratory Results - last 24 hr 02/10/17 02/10/17 02/11/17 Range/Units 17:07 19:48 07:46 WBC (5.0-10.0) 10^3/uL RBC (4.50-6.00) 10^6/uL Hgb (14.0-18.0) g/dL Hct (40.0-54.0) % MCV (82.0-94.0) fL MCH (27.0-32.0) pg MCHC (33.0-38.0) g/dL RDW Coeff of Charline (11.0-15.0) % Plt Count (150-400) 10^3/uL Neut % (Auto) (35-85) % Lymph % (Auto) (10-55) % [place] % (Auto) (0-16) % Eos % (Auto) (0-5) % Baso % (Auto) (0-3) % Neut # (Auto) (1.80-7.00) 10^3/uL Lymph # (Auto) (1.00-4.80) 10^3/uL [place] # (Auto) (0.00-0.80) 10^3/uL Eos # (Auto) (0.00-0.45) 10^3/uL Baso # (Auto) 10^3/uL Sodium 139 (136-145) mEq/L Potassium 4.3 (3.5-5.0) mEq/L Chloride 105 (98-106) mEq/L Carbon Dioxide 29 (21-32) mmol/L BUN 19 H (7-18) mg/dL Creatinine 1.0 (0.7-1.3) mg/dL Est Cr Clr Drug Dosing 48.66 mL/min Estimated GFR (MDRD) > 60 (>=60) mL/min Glucose 149 H (75-99) mg/dL POC Glucose 284 H 346 H (75-105) mg/dl Calcium 8.8 (8.4-10.1) mg/dL C-Reactive Protein 1.0 H (0.2-0.8) mg/dL 11/16/17 Range/Units 08:00 WBC 9.3 (5.0-10.0) 10^3/uL RBC 3.86 L (4.50-6.00) 10^6/uL Hgb 12.3 L (14.0-18.0) g/dL Hct 36.9 L (40.0-54.0) % MCV 95.6 H (82.0-94.0) fL MCH 31.9 (27.0-32.0) pg MCHC 33.3 (33.0-38.0) g/dL RDW Coeff of Charline 12.1 (11.0-15.0) % Plt Count 174 (150-400) 10^3/uL Neut % (Auto) 69.9 (35-85) % Lymph % (Auto) 23.1 (10-55) % [place] % (Auto) 6.6 (0-16) % Eos % (Auto) 0.3 (0-5) % Baso % (Auto) 0.1 (0-3) % Neut # (Auto) 6.50 (1.80-7.00) 10^3/uL Lymph # (Auto) 2.15 (1.00-4.80) 10^3/uL [place] # (Auto) 0.61 (0.00-0.80) 10^3/uL Eos # (Auto) 0.03 (0.00-0.45) 10^3/uL Baso # (Auto) 0.01 10^3/uL Sodium (136-145) mEq/L Potassium (3.5-5.0) mEq/L Chloride (98-106) mEq/L Carbon Dioxide (21-32) mmol/L BUN (7-18) mg/dL Creatinine (0.7-1.3) mg/dL Est Cr Clr Drug Dosing mL/min Estimated GFR (MDRD) (>=60) mL/min Glucose (75-99) mg/dL POC Glucose (75-105) mg/dl Calcium (8.4-10.1) mg/dL C-Reactive Protein (0.2-0.8) mg/dL SHIN Results - Last 24 hrs: Microbiology 02/09/17 10:45 Gram Stain - Final Sputum - Expectorated Sputum Culture - Final 02/07/17 23:05 Aerobic Blood Culture - Preliminary Blood - Venous NO GROWTH AFTER 3 DAYS Anaerobic Blood Culture - Preliminary NO GROWTH AFTER 3 DAYS 02/07/17 23:05 Aerobic Blood Culture - Preliminary Blood - Venous - Lab Draw NO GROWTH AFTER 3 DAYS Anaerobic Blood Culture - Preliminary NO GROWTH AFTER 3 DAYS Med Orders - Current: Current Medications Acetaminophen (Tylenol) 650 mg PO Q4H PRN PRN Reason: Pain (Mild 1-3)/fever Last Admin: 02/08/17 01:30 Dose: 650 mg Albuterol/Ipratropium (Duoneb 3.0-0.5 Mg/3 Ml) 3 ml NEB QIDRT [facility] Last Admin: 02/11/17 16:51 Dose: 3 ml Aspirin (Halfprin) 81 mg PO DAILY [facility] Last Admin: 02/11/17 08:00 Dose: 81 mg Cyanocobalamin (Vitamin B12) 500 mcg PO DAILY [facility] Last Admin: 02/11/17 08:00 Dose: 500 mcg Enoxaparin Sodium (Lovenox) 40 mg SUBCUT Q24H [facility] Last Admin: 02/11/17 08:00 Dose: 40 mg Gabapentin (Neurontin) 300 mg PO BEDTIME [facility] Last Admin: 02/10/17 19:26 Dose: 300 mg Hydrochlorothiazide (Hydrochlorothiazide) 12.5 mg PO DAILY [facility] Last Admin: 02/11/17 08:02 Dose: 12.5 mg Sodium Chloride (Sodium Chloride 0.45%) 1,000 mls @ 75 mls/hr IV ASDIRECTED [facility] Last Admin: 02/11/17 15:18 Dose: 75 mls/hr Levofloxacin/Dextrose 250 mg/ (Premix) 50 mls @ 50 mls/hr IV Q24H [facility] Last Admin: 02/11/17 08:02 Dose: 50 mls/hr Insulin Aspart (Novolog) 0 unit SUBCUT WITHMEALSANDBED [facility] PRN Reason: Protocol Last Admin: 02/11/17 17:32 Dose: 9 units Insulin Aspart (Novolog) 15 unit SUBCUT 0800 [facility] Last Admin: 02/11/17 08:08 Dose: 15 units Insulin Aspart (Novolog) 20 unit SUBCUT 1200,1730 [facility] Last Admin: 02/11/17 17:33 Dose: 20 units Insulin Detemir (Levemir) 20 unit SUBCUT BEDTIME [facility] Last Admin: 02/10/17 19:51 Dose: 20 units Insulin Detemir (Levemir) 30 unit SUBCUT DAILY [facility] Last Admin: 02/11/17 08:07 Dose: 30 units Lisinopril (Prinivil) 10 mg PO DAILY [facility] Last Admin: 02/11/17 08:00 Dose: 10 mg Magnesium Oxide (Magnesium Oxide) 250 mg PO DAILY [facility] Last Admin: 02/11/17 08:02 Dose: 250 mg Metformin HCl (Glucophage) 500 mg PO BIDMEALS [facility] Last Admin: 02/11/17 16:51 Dose: 500 mg Methylprednisolone Sodium Succinate (Solu-Medrol) 62.5 mg IVPUSH Q24H [facility] Last Admin: 02/11/17 07:59 Dose: 62.5 mg Ondansetron HCl (Zofran Odt) 4 mg PO Q4H PRN PRN Reason: nausea, able to take PO Ondansetron HCl (Zofran) 4 mg IV Q4H PRN PRN Reason: Nausea/Vomiting Potassium (Potassium Gluconate) 2 meq PO DAILY [facility] Last Admin: 02/11/17 08:00 Dose: 2 meq Senna/Docusate Sodium (Senna Plus) 1 tab PO BID [facility] Last Admin: 02/11/17 08:02 Dose: 1 tab Simvastatin (Zocor) 20 mg PO BEDTIME [facility] Last Admin: 02/10/17 19:27 Dose: 20 mg Sodium Chloride (Saline Flush) 10 ml FLUSH ASDIRECTED PRN PRN Reason: Keep Vein Open Temazepam (Restoril) 15 mg PO BEDTIME PRN PRN Reason: Insomnia Last Admin: 02/10/17 23:22 Dose: 15 mg Vitamin E (Vitamin E) 400 units PO DAILY [facility] Last Admin: 02/11/17 08:02 Dose: 400 units Zinc Sulfate (Zincate) 220 mg PO ACBREAKFAST [facility] Last Admin: 02/11/17 06:27 Dose: 220 mg Discontinued Medications Albuterol/Ipratropium (Duoneb 3.0-0.5 Mg/3 Ml) Confirm Administered Dose 3 ml .ROUTE .ST-MED ONE Stop: 02/08/17 02:44 Last Admin: 02/08/17 06:47 Dose: Not Given Enoxaparin Sodium (Lovenox) 40 mg SUBCUT Q24H [facility] Last Admin: 02/08/17 02:24 Dose: 40 mg Levofloxacin/Dextrose 500 mg/ (Premix) 100 mls @ 100 mls/hr IV Q24H [facility] Last Admin: 02/08/17 02:22 Dose: Not Given Levofloxacin/Dextrose (Levaquin In D5w 750 Mg/150 Ml) 150 mls @ 100 mls/hr IV Q48H [facility] Last Admin: 02/08/17 02:22 Dose: 100 mls/hr Levofloxacin/Dextrose (Levaquin In D5w 250 Mg/50 Ml) 250 mls @ 166.667 mls/hr IV Q24H [facility] Stop: 02/09/17 12:00 Last Admin: 02/09/17 08:00 Dose: 166.667 mls/hr Insulin Aspart (Novolog) 0 unit SUBCUT WITHMEALSANDBED [facility] PRN Reason: Protocol Last Admin: 02/08/17 11:47 Dose: 10 units Insulin Aspart (Novolog) 5 unit SUBCUT TIDMEALS [facility] Last Admin: 02/09/17 07:58 Dose: 5 units Insulin Aspart (Novolog) 5 unit SUBCUT ONETIME ONE Stop: 02/08/17 17:03 Last Admin: 02/08/17 17:28 Dose: 5 units Insulin Aspart (Novolog) 18 unit SUBCUT ONETIME ONE Stop: 02/08/17 20:14 Last Admin: 02/08/17 21:16 Dose: 18 unit Insulin Aspart (Novolog) 10 unit SUBCUT TIDMEALS [facility] Last Admin: 02/10/17 08:20 Dose: 10 units Insulin Aspart (Novolog) 15 unit SUBCUT TIDMEALS [facility] Last Admin: 02/10/17 17:43 Dose: 15 units Insulin Detemir (Levemir) 15 unit SUBCUT BID [facility] Last Admin: 02/08/17 10:53 Dose: 15 units Insulin Detemir (Levemir) 20 unit SUBCUT BID [facility] Last Admin: 02/10/17 07:53 Dose: 20 unit Insulin Detemir (Levemir) 25 unit SUBCUT DAILY [facility] Iopamidol (Isovue-370 (76%)) 100 ml IVPUSH ONETIME ONE Stop: 02/07/17 22:33 Last Admin: 02/07/17 22:58 Dose: 100 ml Methylprednisolone Sodium Succinate (Solu-Medrol) 62.5 mg IVPUSH Q12H [facility] Last Admin: 02/08/17 01:28 Dose: 62.5 mg Methylprednisolone Sodium Succinate (Solu-Medrol) 62.5 mg IVPUSH Q12H [facility] Methylprednisolone Sodium Succinate (Solu-Medrol) 62.5 mg IVPUSH ONETIME ONE Stop: 02/08/17 10:01 - Exam Quality Assessment: Reports: DVT Prophylaxis. Denies: Supplemental Oxygen General: Reports: Alert, Oriented, No Acute Distress Neck: Reports: Supple Lungs: Reports: Decreased Breath Sounds, Wheezing (LLL) Cardiovascular: Reports: Regular Rate, Regular Rhythm GI/Abdominal Exam: Normal Bowel Sounds, Soft, Non-Tender, No Distention Extremities: Normal Inspection, Normal Range of Motion, Non-Tender, No Pedal Edema, Normal Capillary Refill Neurological: Reports: No New Focal Deficit Psy/Mental Status: Reports: Alert, Normal Affect, Normal Mood *Q Meaningful Use (DIS) - VTE *Q VTE Criteria *Q: - Stroke *Q Stroke Criteria *Q: - AMI *Q AMI Criteria *Q:
== END 2017-02-11 18:08 | disposition swing bed (61) | DRG 194 ==
LOC: CC.ED 22:01 → CC.MS 22:50
PROVIDERS: ADMIT Nurse Practitioner Family; ATTEND General Practice
DX: J18.9 Pneumonia, unspecified organism (principal); N17.9 Acute kidney failure, unspecified; E11.9 Type 2 diabetes mellitus without complications; I10 Essential (primary) hypertension; E78.00 Pure hypercholesterolemia, unspecified; G89.29 Other chronic pain; M54.9 Dorsalgia, unspecified; H54.7 Unspecified visual loss; Z79.84 Long term (current) use of oral hypoglycemic drugs; Z79.82 Long term (current) use of aspirin; Z79.4 Long term (current) use of insulin; Z79.899 Other long term (current) drug therapy
CPT/HCPCS: 36415; 71020; 71275; 80048; 80053; 81001; 82550; 82962; 83605; 83735; 83880; 84484; 85025; 85379; 85610; 86140; 87040; 87070; 87205; 93005; 93010; 94640; 99285; A9270-GY; J1650; J1815-GY; J1956; J2930; J7030; Q9967

== ENCOUNTER 2017-02-11 14:01 | Inpatient (IN) | payer MEDICARE, BC ==
[2017-02-11] MEDS ORDERED: Ondansetron 4 MG/2 ML SDV IV PRN (18:36)
[2017-02-11] MEDS ORDERED: Acetaminophen 325 MG Tab PO PRN (18:36)
[2017-02-11] MEDS ORDERED: methylPREDNISolone Sodium Succinate 125 MG/2 ML SDV IVPUSH SCH (18:45)
[2017-02-11] MEDS ORDERED: Sodium Chloride 0.45% 1,000 ML IV SCH (18:45)
[2017-02-11] MEDS: Enoxaparin 40 MG/0.4 ML Syringe SUBCUT SCH (20:48)
[2017-02-11] MEDS: Albuterol/Ipratropium 3.0-0.5 MG/3 ML Neb Soln NEB SCH (20:49)
[2017-02-11] MEDS: Gabapentin 300 MG Cap PO SCH (20:49)
[2017-02-11] MEDS: Insulin Aspart 100 Units/ML 3 ML Pen SUBCUT SCH ×2 (21:35→21:58)
[2017-02-11] MEDS: Temazepam 15 MG Cap PO PRN (23:03)
[2017-02-12] MEDS: Levofloxacin/Dextrose 5%-Water 250 MG in Premix Bag 1 BAG IV SCH (07:18)
[2017-02-12] MEDS: metFORMIN 500 MG Tab PO SCH ×2 (07:20→17:28)
[2017-02-12] MEDS: Aspirin 81 MG Tab.EC PO SCH (07:21)
[2017-02-12] MEDS: Hydrochlorothiazide 12.5 MG Cap PO SCH (07:21)
[2017-02-12] MEDS: Cyanocobalamin (Vitamin B12) 1,000 MCG Tab PO SCH (07:21)
[2017-02-12] MEDS: Simvastatin 20 MG Tab PO SCH (07:22)
[2017-02-12] MEDS: methylPREDNISolone Sodium Succinate 125 MG/2 ML SDV IVPUSH SCH (07:22)
[2017-02-12] MEDS: Lisinopril 10 MG Tab PO SCH (07:25)
[2017-02-12] MEDS: Albuterol/Ipratropium 3.0-0.5 MG/3 ML Neb Soln NEB SCH ×4 (07:25→19:51)
[2017-02-12] MEDS: Insulin Detemir 100 Units/ML 3 ML Pen SUBCUT SCH ×2 (08:01→20:56)
[2017-02-12] MEDS: Insulin Aspart 100 Units/ML 3 ML Pen SUBCUT SCH ×8 (08:03→20:56)
[2017-02-12] MEDS: Potassium Gluconate (99 MG) 2 MEQ Tab PO SCH (08:17)
[2017-02-12] MEDS ORDERED: Sodium Chloride 0.9% 10 ML Syringe FLUSH PRN (08:46)
[2017-02-12] MEDS ORDERED: Loperamide 2 MG Cap PO PRN (18:26)
[2017-02-12] MEDS: Gabapentin 300 MG Cap PO SCH (19:51)
[2017-02-12] MEDS: Enoxaparin 40 MG/0.4 ML Syringe SUBCUT SCH (19:51)
[2017-02-12] MEDS: Temazepam 15 MG Cap PO PRN (23:30)
[2017-02-13] MEDS: methylPREDNISolone Sodium Succinate 125 MG/2 ML SDV IVPUSH SCH (07:34)
[2017-02-13] MEDS: Levofloxacin/Dextrose 5%-Water 250 MG in Premix Bag 1 BAG IV SCH (07:34)
[2017-02-13] MEDS: Albuterol/Ipratropium 3.0-0.5 MG/3 ML Neb Soln NEB SCH ×4 (07:34→19:30)
[2017-02-13] MEDS: Potassium Gluconate (99 MG) 2 MEQ Tab PO SCH (07:35)
[2017-02-13] MEDS: Hydrochlorothiazide 12.5 MG Cap PO SCH (07:36)
[2017-02-13] MEDS: Aspirin 81 MG Tab.EC PO SCH (07:36)
[2017-02-13] MEDS: Lisinopril 10 MG Tab PO SCH (07:36)
[2017-02-13] MEDS: Simvastatin 20 MG Tab PO SCH (07:36)
[2017-02-13] MEDS: Cyanocobalamin (Vitamin B12) 1,000 MCG Tab PO SCH (07:38)
[2017-02-13] MEDS: metFORMIN 500 MG Tab PO SCH ×2 (07:38→17:23)
[2017-02-13] MEDS: Insulin Detemir 100 Units/ML 3 ML Pen SUBCUT SCH ×2 (07:39→20:45)
[2017-02-13] MEDS: Insulin Aspart 100 Units/ML 3 ML Pen SUBCUT SCH ×7 (08:15→22:52)
[2017-02-13] MEDS: Gabapentin 300 MG Cap PO SCH (19:30)
[2017-02-13] MEDS: Enoxaparin 40 MG/0.4 ML Syringe SUBCUT SCH (19:30)
[2017-02-13] MEDS: Temazepam 15 MG Cap PO PRN (23:02)
[2017-02-14] MEDS: Lisinopril 10 MG Tab PO SCH (07:30)
[2017-02-14] MEDS: methylPREDNISolone Sodium Succinate 125 MG/2 ML SDV IVPUSH SCH (07:30)
[2017-02-14] MEDS: Cyanocobalamin (Vitamin B12) 1,000 MCG Tab PO SCH (07:30)
[2017-02-14] MEDS: Albuterol/Ipratropium 3.0-0.5 MG/3 ML Neb Soln NEB SCH ×4 (07:30→20:03)
[2017-02-14] MEDS: Levofloxacin/Dextrose 5%-Water 250 MG in Premix Bag 1 BAG IV SCH (07:30)
[2017-02-14] MEDS: Aspirin 81 MG Tab.EC PO SCH (07:31)
[2017-02-14] MEDS: Hydrochlorothiazide 12.5 MG Cap PO SCH (07:31)
[2017-02-14] MEDS: Simvastatin 20 MG Tab PO SCH (07:32)
[2017-02-14] MEDS: metFORMIN 500 MG Tab PO SCH ×2 (07:32→16:42)
[2017-02-14] MEDS: Potassium Gluconate (99 MG) 2 MEQ Tab PO SCH (07:32)
[2017-02-14] MEDS: Insulin Detemir 100 Units/ML 3 ML Pen SUBCUT SCH ×2 (07:33→20:04)
[2017-02-14] MEDS: Insulin Aspart 100 Units/ML 3 ML Pen SUBCUT SCH ×7 (07:37→20:06)
[2017-02-14] MEDS: Enoxaparin 40 MG/0.4 ML Syringe SUBCUT SCH (20:03)
[2017-02-14] MEDS: Gabapentin 300 MG Cap PO SCH (20:04)
[2017-02-14] MEDS: Temazepam 15 MG Cap PO PRN (20:04)
[2017-02-15] MEDS: Albuterol/Ipratropium 3.0-0.5 MG/3 ML Neb Soln NEB SCH (07:15)
[2017-02-15] MEDS: Lisinopril 10 MG Tab PO SCH (07:15)
[2017-02-15] MEDS: methylPREDNISolone Sodium Succinate 125 MG/2 ML SDV IVPUSH SCH (07:15)
[2017-02-15] MEDS: Cyanocobalamin (Vitamin B12) 1,000 MCG Tab PO SCH (07:15)
[2017-02-15] MEDS: metFORMIN 500 MG Tab PO SCH (07:16)
[2017-02-15] MEDS: Hydrochlorothiazide 12.5 MG Cap PO SCH (07:16)
[2017-02-15] MEDS: Simvastatin 20 MG Tab PO SCH (07:16)
[2017-02-15] MEDS: Aspirin 81 MG Tab.EC PO SCH (07:16)
[2017-02-15] MEDS: Potassium Gluconate (99 MG) 2 MEQ Tab PO SCH (07:16)
[2017-02-15] MEDS: Levofloxacin/Dextrose 5%-Water 250 MG in Premix Bag 1 BAG IV SCH (07:17)
[2017-02-15] MEDS: Insulin Detemir 100 Units/ML 3 ML Pen SUBCUT SCH (07:18)
[2017-02-15] MEDS: Insulin Aspart 100 Units/ML 3 ML Pen SUBCUT SCH ×2 (07:24→07:56)
[2017-02-15 07:25] LABS: CHLORIDE,CL 104 mEq/L (98-106); SODIUM,NA 141 mEq/L (136-145)
--- NOTE | 2017-02-15 08:03 | PCM.DCSUM1 ---
Discharge Summary - Hospital Course HPI Initial Comments: Patient is an 86 year old male who was originally admitted to acute care from ER on 02/07/17 for LLL pneumonia. Throughout his hospital stay, his energy level , cough, and shortness of breath all improved. He was treated with IV Levaquin, IV solumedrol, and duonebs. He received 8 days of IV antibiotics. Throughout the hospital stay, his WBC and CRP trended down. Upon discharge, his WBC was normal at 9.7 and his CRP was normal at <0.2. He is afebrile, ambulating frequently, and denies shortness of breath. He does report he continues to cough some, but it is less productive. We did struggle some with elevated blood sugars, but throughout stay control of blood sugars improved. His BUN also improved some with IVF. Patient was having adequate oral intake at the time of discharge. Overall, he is feeling much better and feels ready for discharge. He is anxious to get home. Patient will be discharged home on remaining 3 day course of oral Levaquin. He will resume his regular insulin regimen. Advised patient to avoid large crowds for the next few days. Patient will receive his influenza vaccination and the Prevnar prior to discharge. Patient will follow up with Dr. Roque next week in clinic. - Discharge Data Discharge Date: 02/15/17 Discharge Disposition: Home, Self-Care 01 Condition: Good - Discharge Diagnosis/Problem(s) (1) Acute kidney insufficiency SNOMED Code(s): 567338736 ICD Code: N28.9 - DISORDER OF KIDNEY AND URETER, UNSPECIFIED Status: Acute Priority: High (2) Pneumonia SNOMED Code(s): 649510261 ICD Code: J18.9 - PNEUMONIA, UNSPECIFIED ORGANISM Status: Acute Priority : High Onset Date: 02/07/17 Qualifiers: Pneumonia type: due to unspecified organism Laterality: left Lung location: lower lobe of lung Qualified Code(s): J18.1 - Lobar pneumonia, unspecified organism (3) Diabetes mellitus type 2, controlled SNOMED Code(s): 79078539 ICD Code: E11.9 - TYPE 2 DIABETES MELLITUS WITHOUT COMPLICATIONS Status: Chronic Priority: Medium Qualifiers: Diabetes mellitus detention insulin use: with detention use (4) Hyperlipidemia SNOMED Code(s): 11861691 ICD Code: E78.5 - HYPERLIPIDEMIA, UNSPECIFIED Status: Chronic Priority: Low (5) Hypertension SNOMED Code(s): 60340017 ICD Code: I10 - ESSENTIAL (PRIMARY) HYPERTENSION Status: Chronic Priority : Medium - Patient Summary/Data Consults: Consultations 02/11/17 18:36 PT Evaluation and Treatment [CONS] Routine - Patient Instructions Diet: Regular Diet as Tolerated Activity: As Tolerated - Discharge Plan Prescriptions/Med Rec: Levofloxacin [Levaquin] 250 mg PO Q24H 3 Days tablet Home Medications: Home Meds Aspirin [Halfprin] 81 mg PO DAILY 08/22/15 [History] Cinnamon Bark [Cinnamon] 500 mg PO DAILY 08/22/15 [History] Cyanocobalamin (Vitamin B-12) [Vitamin B-12] 500 mg PO DAILY 08/22/15 [History] Flaxseed Oil [Flax Oil] 1,000 mg PO BID 08/22/15 [History] Gabapentin [Neurontin] 300 mg PO BEDTIME 08/22/15 [History] Glucosamine/D3/Boswellia Mona [Osteo Bi-Flex Caplet] 1 tab PO BID 08/22/15 [ History] Insulin Glargine,Hum.Rec.Anlog [Lantus Solostar] 10 units SQ BEDTIME 08/22/15 [ History] Insuln Asp Prot/Insulin Aspart [NovoLOG Mix 70-30] 25 unit SQ ACDINNER 08/22/15 [History] Insuln Asp Prot/Insulin Aspart [NovoLOG Mix 70-30] 35 units SQ WITHBREAKFAST [History] Lisinopril/Hydrochlorothiazide [Lisinopril-Hctz 10-12.5 mg Tab] 1 each PO DAILY 08/22/15 [History] Magnesium 250 mg PO DAILY 08/22/15 [History] Potassium 595 mg PO DAILY 08/22/15 [History] Sennosides/Docusate Sodium [Stool Softener] 1 tab PO BID 08/22/15 [History] Simvastatin [Zocor] 20 mg PO DAILY 08/22/15 [History] Vit D3/Folic Acid/B2/B6/B12 [Folgard Tablet] 2,000 unit PO DAILY 08/22/15 [ History] Vitamin E 400 mg PO DAILY 08/22/15 [History] Zinc 50 mg PO ACBREAKFAST 08/22/15 [History] metFORMIN HCl [Metformin HCl] 500 mg PO BIDMEALS 08/22/15 [History] Levofloxacin [Levaquin] 250 mg PO Q24H 3 Days tablet 02/15/17 [Rx] Patient Handouts: Shortness of Breath, [id number], Community-Acquired Pneumonia, Adult, [id number] Referrals: Simon Roque MD [Primary Care Provider] - - Discharge Summary/Plan Comment Discharge Summary/Plan Comment: Patient will be discharged home on remaining 3 day course of Levaquin. - General Info Date of Service: 02/15/17 Subjective Update: Patient reports he is feeling much better. He is anxious to get home. Does report continued cough, but reports it is much less productive. He denies any weakness, shortness of breath, chest pain. He has been afebrile and ambulating halls frequently. Functional Status: Reports: Pain Controlled, Tolerating Diet, Ambulating, Urinating. Denies: New Symptoms - Review of Systems General: Reports: Fatigue. Denies: Fever, Weakness, Chills HEENT: Reports: No Symptoms Pulmonary: Reports: Cough, Sputum. Denies: Shortness of Breath, Pleuritic Chest Pain, Hemoptysis, Wheezing Cardiovascular: Reports: No Symptoms. Denies: Chest Pain, Dyspnea on Exertion, Lightheadedness Gastrointestinal: Reports: No Symptoms. Denies: Abdominal Pain, Diarrhea, Nausea, Vomiting Genitourinary: Reports: No Symptoms. Denies: Dysuria Musculoskeletal: Reports: No Symptoms Skin: Reports: No Symptoms Neurological: Reports: No Symptoms. Denies: Confusion, Headache Psychiatric: Reports: No Symptoms - Patient Data Vitals - Most Recent: Last Vital Signs Temp 98.2 F 02/14/17 20:00 Pulse 73 02/14/17 20:00 Resp 20 02/14/17 20:00 BP 142/77 H 02/14/17 20:00 Pulse Ox 96 02/14/17 20:00 Weight - Most Recent: 216 lb 12.8 oz Lab Results - Last 24 hrs: Laboratory Results - last 24 hr 02/14/17 02/14/17 02/14/17 Range/Units 11:31 17:11 20:06 WBC (5.0-10.0) 10^3/uL RBC (4.50-6.00) 10^6/uL Hgb (14.0-18.0) g/dL Hct (40.0-54.0) % MCV (82.0-94.0) fL MCH (27.0-32.0) pg MCHC (33.0-38.0) g/dL RDW Coeff of Charline (11.0-15.0) % Plt Count (150-400) 10^3/uL Neut % (Auto) (35-85) % Lymph % (Auto) (10-55) % Kleberg % (Auto) (0-16) % Eos % (Auto) (0-5) % Baso % (Auto) (0-3) % Neut # (Auto) (1.80-7.00) 10^3/uL Lymph # (Auto) (1.00-4.80) 10^3/uL Kleberg # (Auto) (0.00-0.80) 10^3/uL Eos # (Auto) (0.00-0.45) 10^3/uL Baso # (Auto) 10^3/uL Sodium (136-145) mEq/L Potassium (3.5-5.0) mEq/L Chloride (98-106) mEq/L Carbon Dioxide (21-32) mmol/L BUN (7-18) mg/dL Creatinine (0.7-1.3) mg/dL Est Cr Clr Drug Dosing mL/min Estimated GFR (MDRD) (>=60) mL/min Glucose (75-99) mg/dL POC Glucose 110 H 180 H 244 H (75-105) mg/dl Calcium (8.4-10.1) mg/dL C-Reactive Protein (0.2-0.8) mg/dL 02/15/17 02/15/17 Range/Units 06:55 06:55 WBC 9.7 (5.0-10.0) 10^3/uL RBC 4.30 L (4.50-6.00) 10^6/uL Hgb 13.5 L (14.0-18.0) g/dL Hct 40.6 (40.0-54.0) % MCV 94.4 H (82.0-94.0) fL MCH 31.4 (27.0-32.0) pg MCHC 33.3 (33.0-38.0) g/dL RDW Coeff of Charline 12.5 (11.0-15.0) % Plt Count 239 (150-400) 10^3/uL Neut % (Auto) 61.8 (35-85) % Lymph % (Auto) 30.6 (10-55) % Kleberg % (Auto) 6.9 (0-16) % Eos % (Auto) 0.6 (0-5) % Baso % (Auto) 0.1 (0-3) % Neut # (Auto) 5.96 (1.80-7.00) 10^3/uL Lymph # (Auto) 2.95 (1.00-4.80) 10^3/uL Kleberg # (Auto) 0.67 (0.00-0.80) 10^3/uL Eos # (Auto) 0.06 (0.00-0.45) 10^3/uL Baso # (Auto) 0.01 10^3/uL Sodium 141 (136-145) mEq/L Potassium 4.2 (3.5-5.0) mEq/L Chloride 104 (98-106) mEq/L Carbon Dioxide 31 (21-32) mmol/L BUN 21 H (7-18) mg/dL Creatinine 1.0 (0.7-1.3) mg/dL Est Cr Clr Drug Dosing 50.35 mL/min Estimated GFR (MDRD) > 60 (>=60) mL/min Glucose 94 D (75-99) mg/dL POC Glucose (75-105) mg/dl Calcium 9.2 (8.4-10.1) mg/dL C-Reactive Protein < 0.2 L (0.2-0.8) mg/dL Med Orders - Current: Current Medications Acetaminophen (Tylenol) 650 mg PO Q4H PRN PRN Reason: Pain (Mild 1-3)/fever Albuterol/Ipratropium (Duoneb 3.0-0.5 Mg/3 Ml) 3 ml NEB QIDRT [facility] Last Admin: 02/15/17 07:15 Dose: 3 ml Aspirin (Halfprin) 81 mg PO DAILY [facility] Last Admin: 02/15/17 07:16 Dose: 81 mg Cyanocobalamin (Vitamin B12) 500 mcg PO DAILY [facility] Last Admin: 02/15/17 07:15 Dose: 500 mcg Enoxaparin Sodium (Lovenox) 40 mg SUBCUT Q24H [facility] Last Admin: 02/14/17 20:03 Dose: 40 mg Gabapentin (Neurontin) 300 mg PO BEDTIME [facility] Last Admin: 02/14/17 20:04 Dose: 300 mg Hydrochlorothiazide (Hydrochlorothiazide) 12.5 mg PO DAILY [facility] Last Admin: 02/15/17 07:16 Dose: 12.5 mg Levofloxacin/Dextrose 250 mg/ (Premix) 50 mls @ 50 mls/hr IV Q24H [facility] Last Admin: 02/15/17 07:17 Dose: 50 mls/hr Insulin Aspart (Novolog) 20 unit SUBCUT 1200,1730 [facility] Last Admin: 02/14/17 17:12 Dose: 20 units Insulin Aspart (Novolog) 15 unit SUBCUT 0800 [facility] Last Admin: 02/15/17 07:56 Dose: 15 units Insulin Aspart (Novolog) 0 unit SUBCUT WITHMEALSANDBED [facility] PRN Reason: Protocol Last Admin: 02/15/17 07:24 Dose: Not Given Insulin Detemir (Levemir) 30 unit SUBCUT DAILY [facility] Last Admin: 02/15/17 07:18 Dose: 30 units Insulin Detemir (Levemir) 20 unit SUBCUT BEDTIME [facility] Last Admin: 02/14/17 20:04 Dose: 20 units Lisinopril (Prinivil) 10 mg PO DAILY [facility] Last Admin: 02/15/17 07:15 Dose: 10 mg Loperamide HCl (Imodium) 2 mg PO Q6H PRN PRN Reason: Diarrhea Magnesium Oxide (Magnesium Oxide) 250 mg PO DAILY [facility] Last Admin: 02/15/17 07:15 Dose: 250 mg Metformin HCl (Glucophage) 500 mg PO BIDMEALS [facility] Last Admin: 02/15/17 07:16 Dose: 500 mg Methylprednisolone Sodium Succinate (Solu-Medrol) 62.5 mg IVPUSH Q24H [facility] Last Admin: 02/15/17 07:15 Dose: 62.5 mg Ondansetron HCl (Zofran) 4 mg IV Q6H PRN PRN Reason: Nausea/Vomiting Potassium (Potassium Gluconate) 2 meq PO DAILY [facility] Last Admin: 02/15/17 07:16 Dose: 2 meq Senna/Docusate Sodium (Senna Plus) 1 tab PO BID [facility] Last Admin: 02/15/17 07:16 Dose: 1 tab Simvastatin (Zocor) 20 mg PO DAILY [facility] Last Admin: 02/15/17 07:16 Dose: 20 mg Sodium Chloride (Saline Flush) 10 ml FLUSH ASDIRECTED PRN PRN Reason: Keep Vein Open Temazepam (Restoril) 15 mg PO BEDTIME PRN PRN Reason: Sleep Last Admin: 02/14/17 20:04 Dose: 15 mg Discontinued Medications Sodium Chloride (Sodium Chloride 0.45%) 1,000 mls @ 75 mls/hr IV ASDIRECTED [facility] Last Admin: 02/12/17 04:42 Dose: 75 mls/hr Insulin Aspart (Novolog) 0 unit SUBCUT WITHMEALSANDBED [facility] PRN Reason: Protocol Last Admin: 02/12/17 08:04 Dose: Not Given Methylprednisolone Sodium Succinate (Solu-Medrol) 62.5 mg IVPUSH Q24H [facility] Last Admin: 02/11/17 19:40 Dose: Not Given *Q Meaningful Use (DIS) - VTE *Q VTE Criteria *Q: - Stroke *Q Stroke Criteria *Q: - AMI *Q AMI Criteria *Q:
[2017-02-15] MEDS ORDERED: FLU Vacc QS 2017-18 (36mos UP)/PF 60 MCG/0.5 ML Syringe IM ONE (08:56)
[2017-02-15] MEDS ORDERED: Pneumococcal 13-Valent Conjugate Vaccine 0.5 ML Syringe IM ONE (08:57)
[2017-02-15 10:07] VITALS: BP 142/65
== END 2017-02-15 09:45 | disposition home or self-care (01) | DRG 195 ==
LOC: CC.MS 18:00 → UNDOADMIN 18:15
PROVIDERS: ADMIT General Practice; ATTEND General Practice
PROC: 3E0234Z Introduction of Serum, Toxoid and Vaccine into Muscle, Percutaneous Approach (ICD-10-PCS; principal; 2017-02-15)
DX: J18.9 Pneumonia, unspecified organism (principal); N28.9 Disorder of kidney and ureter, unspecified; E11.9 Type 2 diabetes mellitus without complications; E78.5 Hyperlipidemia, unspecified; I10 Essential (primary) hypertension; Z79.4 Long term (current) use of insulin; Z79.84 Long term (current) use of oral hypoglycemic drugs; M54.9 Dorsalgia, unspecified; G89.29 Other chronic pain; Z23 Encounter for immunization
CPT/HCPCS: 36415; 80048; 82962; 85025; 86140; 90670; 90686; 94640; 97161-GP; A9270-GY; G0008; G0009; J1650; J1815-GY; J1956; J2930; J7030